=== PATIENT | female | born 1995 | race Caucasian/White ===

== ENCOUNTER 2020-03-12 14:42 | Emergency (ER) | payer OTHER ==
[~2020-03-12] VITALS: Ht 162.6 cm; Wt 72.6 kg
[2020-03-12 16:01] VITALS: BP 145/68
== END 2020-03-12 17:01 | disposition home or self-care (01) ==
LOC: ER 14:42
DX: S70.362A Insect bite (nonvenomous), left thigh, initial encounter (principal); L08.9 Local infection of the skin and subcutaneous tissue, unspecified; Z90.49 Acquired absence of other specified parts of digestive tract; W57.XXXA Bitten or stung by nonvenomous insect and other nonvenomous arthropods, initial encounter; Y93.89 Activity, other specified; Y92.89 Other specified places as the place of occurrence of the external cause; Y99.8 Other external cause status